=== PATIENT | male | born 1995 ===

== ENCOUNTER 2021-07-21 13:45 | Emergency (ER) | payer SELFPAY ==
[~2021-07-21] VITALS: Ht 170.2 cm; Wt 81.8 kg
[2021-07-21 15:09] VITALS: BP 124/83; PULSE 80; TEMP 98.9
== END 2021-07-21 16:34 | disposition left against medical advice (07) ==
LOC: COL.ER 13:45
DX: H57.89 Other specified disorders of eye and adnexa (principal)